=== PATIENT | female | born 1985 | race Caucasian/White ===

== ENCOUNTER 2016-10-15 15:03 | Emergency (ER) | payer MEDICAID ==
[2016-04-21 10:50] VITALS: BMI 34.1
[~2016-10-15 15:03] MED LIST: CYCLOBENZAPRINE10 MG PO; LAMICTAL100 MG PO; LISINOPRIL10 MG PO; NEURONTIN600 MG PO; XANAX1 MG PO
[2016-10-15 16:48] LABS: BASOPHILS 0.5 % (0.0-2.0); EOSINOPHILS 1.9 % (0-7); HEMATOCRIT 39.6 % (36.0-48.0); HEMOGLOBIN 13.2 g/dL (12-16); IMMATURE GRANULOCYTES 0.2 % (0-5); LYMPHOCYTES 35.9 % (15-50); MCH 28.9 pg (26.0-34.0); MCHC 33.3 g/dL (31.0-37.0); MCV 86.8 fL (80.0-100.0); MEAN PLATELET VOLUME 10.6 fL (7.4-10.4); MONOCYTES 5.4 % (2-11); NEUTROPHILS 56.1 % (40-80); RBC 4.56 10x6/uL (4.00-5.40); RDW 12.6 % (11.5-14.5); WBC 8.3 10x3/uL (4.8-10.8)
[2016-10-15 16:50] LABS: PLATELET COUNT 261 10x3/uL (130-400)
[2016-10-15 18:14] LABS: HCG SERUM NEGATIVE (NEGATIVE)
[2016-10-15 18:18] LABS: ANION GAP 15.3 mmol/L (8-16); BILIRUBIN - TOTAL 0.66 mg/dL (0.2-1.3); CALCIUM 9.5 mg/dL (8.5-10.1); CARBON DIOXIDE 26.3 mmol/L (21.0-32.0); POTASSIUM - SERUM 4.6 mmol/L (3.5-5.1); PROTEIN - SERUM 7.9 g/dL (6.4-8.2)
== END 2016-10-15 21:35 | disposition home or self-care (01) ==
LOC: D.ER 15:03
PROVIDERS: Emergency Medicine; Physician Assistant Medical
DX: R10.9 Unspecified abdominal pain (principal); F41.9 Anxiety disorder, unspecified; F31.9 Bipolar disorder, unspecified

== ENCOUNTER 2017-06-29 15:33 | Emergency (ER) | payer MEDICAID ==
[2016-04-21 10:50] VITALS: BMI 34.1
[2017-06-29 17:40] LABS: BASOPHILS 0.2 % (0-2); EOSINOPHILS 0.5 % (0-7); IMMATURE GRANULOCYTES 0.4 % (0-5); LYMPHOCYTES 25.5 % (15-50); MCH 30.4 pg (26.0-34.0); MCHC 34.2 g/dL (31.0-37.0); MCV 88.8 fL (80.0-100.0); MEAN PLATELET VOLUME 10.9 fL (7.4-10.4); MONOCYTES 6.8 % (2-11); NEUTROPHILS 66.6 % (40-80); PLATELET COUNT 214 10x3/uL (130-400); RBC 4.28 10x6/uL (4.00-5.40); RDW 12.9 % (11.5-14.5); WBC 8.1 10x3/uL (4.8-10.8)
[2017-06-29 17:50] LABS: HCG SERUM POSITIVE (NEGATIVE)
[2017-06-29 17:50] LABS: UDS - AMPHET NEGATIVE QUAL (NEGATIVE); UDS - BARB NEGATIVE QUAL (NEGATIVE); UDS - BENZO NEGATIVE QUAL (NEGATIVE); UDS - COCAINE NEGATIVE QUAL (NEGATIVE); UDS - OPIATE NEGATIVE QUAL (NEGATIVE); UDS - PCP NEGATIVE QUAL (NEGATIVE); UDS - THC POSITIVE QUAL (NEGATIVE)
[2017-06-29 17:54] LABS: ALBUMIN 3.3 g/dL (3.4-5.0); ALKALINE PHOSPHATASE 82 U/L (46-116); ALT (SGPT) 16 U/L (10-68); BILIRUBIN - TOTAL 0.27 mg/dL (0.2-1.3); CALC OSMOLALITY 266 mosm/kg (275-300); CALCIUM 8.4 mg/dL (8.5-10.1); CARBON DIOXIDE 23.7 mmol/L (21.0-32.0); CHLORIDE - SERUM 101 mmol/L (98-107); CREATININE - SERUM 0.7 mg/dL (0.6-1.3); GLUCOSE 86 mg/dL (74-106); POTASSIUM - SERUM 3.5 mmol/L (3.5-5.1); PROTEIN - SERUM 7.3 g/dL (6.4-8.2); SODIUM 135 mmol/L (136-145); UREA NITROGEN 6 mg/dL (7-18); eGFR NON AFRICAN AMERICAN > 90 mL/min (90-120)
[2017-06-29 18:51] LABS: APPEARANCE CLEAR (CLEAR); BILIRUBIN NEGATIVE (NEGATIVE); COLOR YELLOW (YELLOW); GLUCOSE NEGATIVE (NEGATIVE); KETONE SMALL mg/dL (NEGATIVE); NITRITE NEGATIVE (NEGATIVE); PROTEIN NEGATIVE (NEGATIVE); SPECIFIC GRAVITY 1.015 (1.005-1.020); UROBILINOGEN NORMAL (NORMAL)
[2017-11-03] MEDS ORDERED: PRENATAL COMPLE1 TAB PO (21:06)
[2017-11-03] MEDS ORDERED: ZOFRAN4 MG SL (21:08)
== END 2017-06-29 20:29 | disposition home or self-care (01) ==
LOC: D.ER 15:33
PROVIDERS: Physician Assistant
DX: O26.891 Other specified pregnancy related conditions, first trimester (principal); Z3A.08 8 weeks gestation of pregnancy; K52.9 Noninfective gastroenteritis and colitis, unspecified; R11.2 Nausea with vomiting, unspecified

== ENCOUNTER 2017-08-26 10:10 | Emergency (ER) | payer MEDICAID ==
[2016-04-21 10:50] VITALS: BMI 34.1
[2017-08-26 10:52] LABS: BASOPHILS 0.1 % (0-2); EOSINOPHILS 1.3 % (0-7); HEMATOCRIT 32.5 % (36.0-48.0); HEMOGLOBIN 11.3 g/dL (12-16); IMMATURE GRANULOCYTES 0.3 % (0-5); MCH 30.2 pg (26.0-34.0); MCHC 34.8 g/dL (31.0-37.0); MCV 86.9 fL (80.0-100.0); MEAN PLATELET VOLUME 10.6 fL (7.4-10.4); MONOCYTES 4.1 % (2-11); NEUTROPHILS 71.2 % (40-80); PLATELET COUNT 201 10x3/uL (130-400); RBC 3.74 10x6/uL (4.00-5.40); RDW 13.2 % (11.5-14.5); WBC 9.1 10x3/uL (4.8-10.8)
[2017-08-26 10:55] LABS: APPEARANCE CLEAR (CLEAR); BILIRUBIN NEGATIVE (NEGATIVE); COLOR YELLOW (YELLOW); GLUCOSE NEGATIVE (NEGATIVE); KETONE NEGATIVE (NEGATIVE); NITRITE NEGATIVE (NEGATIVE); PROTEIN NEGATIVE (NEGATIVE); SPECIFIC GRAVITY 1.015 (1.005-1.020); UROBILINOGEN NORMAL (NORMAL)
[2017-08-26 10:56] LABS: BACTERIA MODERATE /hpf (NONE SEEN); EPITHELIAL CELLS 0-5 /hpf (0-5); RED CELLS - URINE NONE SEEN /hpf (0-5); WHITE CELLS - URINE 0-5 /hpf (0-5)
[2017-08-26 11:00] LABS: HCG SERUM POSITIVE (NEGATIVE)
[2017-08-26 11:07] LABS: ALBUMIN 2.7 g/dL (3.4-5.0); ALKALINE PHOSPHATASE 65 U/L (46-116); ALT (SGPT) 14 U/L (10-68); BILIRUBIN - TOTAL 0.29 mg/dL (0.2-1.3); CALC OSMOLALITY 273 mosm/kg (275-300); CALCIUM 8.7 mg/dL (8.5-10.1); CARBON DIOXIDE 22.1 mmol/L (21.0-32.0); CHLORIDE - SERUM 106 mmol/L (98-107); CREATININE - SERUM 0.7 mg/dL (0.6-1.3); GLUCOSE 97 mg/dL (74-106); LIPASE 108 U/L (73-393); POTASSIUM - SERUM 3.5 mmol/L (3.5-5.1); PROTEIN - SERUM 6.5 g/dL (6.4-8.2); SODIUM 138 mmol/L (136-145); UREA NITROGEN 6 mg/dL (7-18); eGFR NON AFRICAN AMERICAN > 90 mL/min (90-120)
--- NOTE | 2017-08-26 14:00 | NUR ---
RECIEVED PT FROM ER VIA WC. PT UP TO RESTROOM TO VOID. PT AND FOB SPEAKING TO EACH OTHER IN ELEVATED VOICES. EXPLAINED THAT DR TINAJERO WAS ON UNIT AND WILL BE IN SHORTLY TO ASSESS HER.
--- NOTE | 2017-08-26 14:10 | NUR ---
DR TINAJERO IN ROOM ASSESSING PT. ABDOMEN PALPATES SOFT PER MD. FHT 140S VIA DOPPLAR. MD DISCUSSING ROUND LIGAMENT PAIN WITH PT AT THIS TIME. PT DENIES FURTHER QUESTIONS OR NEEDS AND AMBULATES OFF UNIT.
[2017-11-03] MEDS ORDERED: PRENATAL COMPLE1 TAB PO (21:06)
[2017-11-03] MEDS ORDERED: ZOFRAN4 MG SL (21:08)
== END 2017-08-26 14:00 | disposition home or self-care (01) ==
LOC: D.ER 10:10
PROVIDERS: Emergency Medicine
DX: R10.9 Unspecified abdominal pain (principal)

== ENCOUNTER → 2017-10-12 14:31 | Outpatient (CLI) | payer MEDICAID ==
[2016-04-21 10:50] VITALS: BMI 34.1
[~2017-10-12 14:31] MED LIST changes: +PRENATAL COMPLE1 TAB PO; +ZOFRAN4 MG SL
[2017-10-12 15:06] LABS: UDS - AMPHET NEGATIVE QUAL (NEGATIVE); UDS - BARB NEGATIVE QUAL (NEGATIVE); UDS - BENZO NEGATIVE QUAL (NEGATIVE); UDS - COCAINE NEGATIVE QUAL (NEGATIVE); UDS - OPIATE NEGATIVE QUAL (NEGATIVE); UDS - PCP NEGATIVE QUAL (NEGATIVE); UDS - THC NEGATIVE QUAL (NEGATIVE)
[2017-10-12 15:13] LABS: APPEARANCE CLEAR (CLEAR); BILIRUBIN NEGATIVE (NEGATIVE); COLOR YELLOW (YELLOW); GLUCOSE NEGATIVE (NEGATIVE); KETONE NEGATIVE (NEGATIVE); NITRITE NEGATIVE (NEGATIVE); PROTEIN NEGATIVE (NEGATIVE); UROBILINOGEN NORMAL (NORMAL)
== END | disposition home or self-care (01) ==
LOC: D.LDO 14:31
PROVIDERS: Obstetrics & Gynecology
DX: Z34.82 Encounter for supervision of other normal pregnancy, second trimester (principal); Z3A.24 24 weeks gestation of pregnancy; R10.9 Unspecified abdominal pain

== ENCOUNTER → 2017-11-03 20:55 | Outpatient (CLI) | payer MEDICAID ==
[2016-04-21 10:50] VITALS: BMI 34.1
[2017-11-03 21:49] LABS: APPEARANCE SLT CLOUDY (CLEAR); BILIRUBIN NEGATIVE (NEGATIVE); COLOR YELLOW (YELLOW); GLUCOSE NEGATIVE (NEGATIVE); KETONE NEGATIVE (NEGATIVE); NITRITE NEGATIVE (NEGATIVE); PROTEIN TRACE mg/dL (NEGATIVE); UROBILINOGEN NORMAL (NORMAL)
== END | disposition home or self-care (01) ==
LOC: D.LDO 20:55
PROVIDERS: Obstetrics & Gynecology
DX: O26.892 Other specified pregnancy related conditions, second trimester (principal); Z3A.27 27 weeks gestation of pregnancy; R10.9 Unspecified abdominal pain

== ENCOUNTER → 2017-12-20 16:58 | Outpatient (CLI) | payer MEDICAID ==
[2016-04-21 10:50] VITALS: BMI 34.1
[~2017-12-20 16:58] MED LIST changes: +FERROUS SULFAT325 MG PO; +HYDROCODON-ACE1 EAC7 PO; +LAMICTAL200 MG PO
[2017-12-20 17:55] LABS: HEMATOCRIT 28.5 % (36.0-48.0); HEMOGLOBIN 9.6 g/dL (12-16); MCH 29.3 pg (26.0-34.0); MCHC 33.7 g/dL (31.0-37.0); MCV 86.9 fL (80.0-100.0); MEAN PLATELET VOLUME 9.7 fL (7.4-10.4); PLATELET COUNT 218 10x3/uL (130-400); RBC 3.28 10x6/uL (4.00-5.40); RDW 13.2 % (11.5-14.5); WBC 10.2 10x3/uL (4.8-10.8)
[2017-12-20 17:57] LABS: APPEARANCE HAZY (CLEAR); BILIRUBIN NEGATIVE (NEGATIVE); COLOR DK YELLOW (YELLOW); GLUCOSE NEGATIVE (NEGATIVE); KETONE NEGATIVE (NEGATIVE); NITRITE NEGATIVE (NEGATIVE); PROTEIN NEGATIVE (NEGATIVE); UROBILINOGEN NORMAL (NORMAL)
[2017-12-20 18:29] LABS: EOSINOPHILS 3 % (0-7); LYMPHOCYTES 26 % (15-50); NEUTROPHILS 70 % (40-80); PLATELET ESTIMATE NORMAL
[2017-12-20 18:30] LABS: ROULEAUX OCC
== END | disposition home or self-care (01) ==
LOC: D.LDO 16:58
PROVIDERS: Obstetrics & Gynecology
DX: O21.2 Late vomiting of pregnancy (principal); Z3A.34 34 weeks gestation of pregnancy

== ENCOUNTER → 2017-12-28 12:41 | Outpatient (CLI) | payer MEDICAID ==
[2016-04-21 10:50] VITALS: BMI 34.1
== END | disposition home or self-care (01) ==
LOC: D.LDO 12:41
DX: O26.893 Other specified pregnancy related conditions, third trimester (principal); Z3A.35 35 weeks gestation of pregnancy; R10.30 Lower abdominal pain, unspecified

== ENCOUNTER 2018-01-31 08:52 | Inpatient (IN) | payer MEDICAID ==
[~2018-01-31] VITALS: Ht 157.5 cm; Wt 85.3 kg
[~2018-01-31 08:52] MED LIST changes: -FERROUS SULFAT325 MG PO; -HYDROCODON-ACE1 EAC7 PO; -LAMICTAL200 MG PO
[2018-01-31] MEDS ORDERED: FERROUS SULFAT325 MG PO (09:45)
[2018-01-31 09:49] VITALS: BP 131/85; Ht 157.5 cm; Wt 85.3 kg
== END 2018-01-31 11:30 | disposition home or self-care (01) | DRG 781 ==
LOC: D.SDCHOLD 08:52 → D.LD 09:00 → D.SDCHOLD 11:00 → D.LD 11:30
DX: O34.219 Maternal care for unspecified type scar from previous cesarean delivery (principal); O99.343 Other mental disorders complicating pregnancy, third trimester; Z3A.39 39 weeks gestation of pregnancy; F31.9 Bipolar disorder, unspecified

== ENCOUNTER 2018-02-01 06:01 | Inpatient (IN) | payer MEDICAID ==
[2018-01-30 09:17] LABS: HEMATOCRIT 30.6 % (36.0-48.0); HEMOGLOBIN 10.2 g/dL (12-16); MCH 28.8 pg (26.0-34.0); MCHC 33.3 g/dL (31.0-37.0); MCV 86.4 fL (80.0-100.0); MEAN PLATELET VOLUME 9.8 fL (7.4-10.4); RBC 3.54 10x6/uL (4.00-5.40); RDW 13.6 % (11.5-14.5); WBC 10.2 10x3/uL (4.8-10.8)
[2018-01-31 08:26] LABS: RAPID PLASMA REAGIN Non Reactive (Non Reactive)
[2018-02-01] VITALS (12 sets, daily range): BP systolic 115–134; BP diastolic 3–87; Ht 157.5 cm; Wt 85.3 kg
[~2018-02-01] VITALS: Ht 157.5 cm; Wt 85.3 kg
--- NOTE | ~2018-02-01 | OP ---
PATIENT NAME: JOANN WOODS MEDICAL RECORD: [id number] :87 LOCATION:[id number] ADMISSION DATE:02/01/18 SURGEON: GIOVANI TINAJERO MD DATE OF OPERATION: 02/01/2018 PREOPERATIVE DIAGNOSES: 1. History of prior section. 2. at 39 weeks gestational age. 3. Unwanted fertility. POSTDELIVERY DIAGNOSES: 1. History of prior section. 2. Mother delivered at 39 weeks. 3. Unwanted fertility. PROCEDURES: 1. Repeat low transverse section. 2. tubal ligation using a [place] technique. SURGEON: Giovani Tinajero MD ANESTHESIOLOGIST: Dr. Velasquez ANESTHETIC: Spinal. FINDINGS: Uterus, tubes, and ovaries are unremarkable. Viable female , vertex presentation, Apgars 9 and 9, weight 7 pounds 9 ounces. SPECIMEN REMOVED: Placenta. SPECIMEN DISPOSITION: Discarded. ESTIMATED BLOOD LOSS: 700 cc. URINE OUTPUT: 200 cc. FLUIDS: 2100 cc Lactated Ringer's. COMPLICATIONS: None. DRAINS: Donaldson to gravity. INDICATIONS: The patient is a 32-year-old multiparous female with unwanted fertility at 39 weeks' gestation. The patient is consented for repeat low transverse section and tubal ligation. Risks, benefits as well as alternatives to tubal ligation have been described. The patient understands the risk of failure of 1 in 100 with an increased chance of an ectopic gestation, which can be life threatening if not treated properly. DESCRIPTION OF PROCEDURE: After informed consent was assured, the patient was taken to the operating room where anesthetic was attained without difficulty. The patient was prepped and draped and the anesthetic assessed and found to be adequate. An incision was made over the old scar, carried down to the underlying layer of the fascia, which was opened and the rectus bellies dissected free. The peritoneum is now entered sharply and the peritoneal OPERATIVE REPORT [id number] JOANN WOODS opening extended with good visualization of the bladder. A [place]Lee all-purpose retractor was now inserted and low transverse hysterotomy was performed. The infant was delivered onto the abdomen atraumatically. Cord was doubly clamped and cut, and the infant was passed to the attendant. Placenta was delivered via Crede maneuver. Uterus exteriorized, cleared of all clot and debris. The uterus was now closed with a running locked stitch of chromic. After this was performed, some bleeding was encountered at the right corner and an [place] stitch was placed to obtain hemostasis. Attention was directed to the right tube, which was elevated and a window developed in the antimesenteric side. Two ligatures were passed through here and secured in the proximal and distal segment and the intervening segment of tube excised. The ostia was cauterized. This was repeated on the contralateral side. Both segments of tubes are sent to pathology. The uterus was now returned to the abdomen and inspection of the tubal stumps reveals adequate hemostasis. The hysterotomy was inspected and pelvis irrigated, and the hysterotomy was found to be hemostatic. Irrigant was removed, and the rectus bellies were reapproximated with 2 interrupted stitches of chromic in the midline. The fascia was now closed with looped PDS. The skin was reapproximated with a subcuticular stitch. Sterile dressing was applied. Sponge, lap, and needle count was correct times 3. TRANSINT:[id number] Voice Confirmation ID: [id number] DOCUMENT ID: [id number] GIOVANI TINAJERO MD at 0654 CC: [id number] DICTATION DATE: 02/01/18 1156 APPLE PEELER OPERATOR: 02/01/18 1528 DIS IN 02/03/18 [facility] [address] [place] [address]
[~2018-02-01 06:01] MED LIST changes: +FERROUS SULFAT325 MG PO
[2018-02-02 03:02] VITALS: BP 110/74
[2018-02-02 07:11] VITALS: BP 117/64
[2018-02-02 15:27] LABS: BASOPHILS 0.1 % (0-2); HEMATOCRIT 28.3 % (36.0-48.0); HEMOGLOBIN 9.2 g/dL (12-16); IMMATURE GRANULOCYTES 0.6 % (0-5); LYMPHOCYTES 21.2 % (15-50); MCH 28.5 pg (26.0-34.0); MCHC 32.5 g/dL (31.0-37.0); MCV 87.6 fL (80.0-100.0); MEAN PLATELET VOLUME 9.6 fL (7.4-10.4); MONOCYTES 6.5 % (2-11); NEUTROPHILS 68.6 % (40-80); PLATELET COUNT 229 10x3/uL (130-400); RBC 3.23 10x6/uL (4.00-5.40); RDW 13.7 % (11.5-14.5)
[2018-02-02 15:59] VITALS: BP 125/78
[2018-02-02 19:41] VITALS: BP 126/75
[2018-02-03 00:26] VITALS: BP 120/81
[2018-02-03 07:39] VITALS: BP 124/84
[2018-02-03] MEDS ORDERED: LAMICTAL200 MG PO (11:41)
[2018-02-03] MEDS ORDERED: HYDROCODON-ACE1 EAC7 PO (11:42)
== END 2018-02-03 12:55 | disposition home or self-care (01) | DRG 766 ==
LOC: D.LD 06:01
PROVIDERS: Obstetrics & Gynecology
PROC: 10D00Z1 Extraction of Products of Conception, Low, Open Approach (ICD-10-PCS; principal; 2018-02-01 07:30)
PROC: 0UB70ZZ Excision of Bilateral Fallopian Tubes, Open Approach (ICD-10-PCS; 2018-02-01 07:30)
DX: O34.219 Maternal care for unspecified type scar from previous cesarean delivery (principal); Z3A.39 39 weeks gestation of pregnancy; Z37.0 Single live birth; Z30.2 Encounter for sterilization; Z30.09 Encounter for other general counseling and advice on contraception; O99.344 Other mental disorders complicating childbirth; Z87.891 Personal history of nicotine dependence

== ENCOUNTER 2018-04-14 15:29 | Emergency (ER) | payer MEDICAID ==
[~2018-04-14] VITALS: Ht 157.5 cm; Wt 81.8 kg
[~2018-04-14 15:29] MED LIST changes: +HYDROCODON-ACE1 EAC7 PO; +LAMICTAL200 MG PO
[2018-04-14 15:33] VITALS: Ht 157.5 cm; Wt 81.8 kg
[2018-04-14] MEDS ORDERED: XANAX1 MG PO (15:36)
[2018-04-14] MEDS ORDERED: LAMICTAL150 MG PO (15:36)
[2018-04-14] MEDS ORDERED: IBUPROFEN400 MG PO (15:37)
[2018-04-14 16:00] LABS: APPEARANCE CLEAR (CLEAR); BILIRUBIN NEGATIVE (NEGATIVE); COLOR DK YELLOW (YELLOW); GLUCOSE NEGATIVE (NEGATIVE); KETONE NEGATIVE (NEGATIVE); NITRITE NEGATIVE (NEGATIVE); PROTEIN NEGATIVE (NEGATIVE); SPECIFIC GRAVITY 1.025 (1.005-1.020); UROBILINOGEN NORMAL (NORMAL)
[2018-04-14 16:01] LABS: RED CELLS - URINE 0-5 /hpf (0-5); WHITE CELLS - URINE 0-5 /hpf (0-5)
[2018-04-14 16:02] LABS: BACTERIA FEW /hpf (NONE SEEN); EPITHELIAL CELLS 0-5 /hpf (0-5)
[2018-04-14 16:16] LABS: BASOPHILS 0.2 % (0-2); EOSINOPHILS 3.4 % (0-7); HEMATOCRIT 37.8 % (36.0-48.0); HEMOGLOBIN 12.3 g/dL (12-16); IMMATURE GRANULOCYTES 0.1 % (0-5); LYMPHOCYTES 36.9 % (15-50); MCH 26.9 pg (26.0-34.0); MCHC 32.5 g/dL (31.0-37.0); MCV 82.7 fL (80.0-100.0); MEAN PLATELET VOLUME 10.1 fL (7.4-10.4); MONOCYTES 5.6 % (2-11); NEUTROPHILS 53.8 % (40-80); PLATELET COUNT 263 10x3/uL (130-400); RBC 4.57 10x6/uL (4.00-5.40); RDW 13.7 % (11.5-14.5)
[2018-04-14 16:52] LABS: ALBUMIN 3.5 g/dL (3.4-5.0); ALKALINE PHOSPHATASE 95 U/L (46-116); ALT (SGPT) 32 U/L (10-68); AMYLASE - SERUM 25 U/L (25-115); BILIRUBIN - TOTAL 0.79 mg/dL (0.2-1.3); CALC OSMOLALITY 278 mosm/kg (275-300); CALCIUM 8.7 mg/dL (8.5-10.1); CARBON DIOXIDE 27.5 mmol/L (21.0-32.0); CHLORIDE - SERUM 107 mmol/L (98-107); CREATININE - SERUM 0.9 mg/dL (0.6-1.3); GLUCOSE 87 mg/dL (74-106); LIPASE 103 U/L (73-393); POTASSIUM - SERUM 3.8 mmol/L (3.5-5.1); PROTEIN - SERUM 7.2 g/dL (6.4-8.2); SODIUM 141 mmol/L (136-145); UREA NITROGEN 9 mg/dL (7-18); eGFR NON AFRICAN AMERICAN 78 mL/min (90-120)
[2018-04-14] MEDS ORDERED: BENTYL 20 MG TA20 MG PO (18:47)
[2018-04-14] MEDS ORDERED: COMPAZINE10 MG PO (18:47)
[2018-04-14 19:01] VITALS: BP 144/82
== END 2018-04-14 19:03 | disposition home or self-care (01) ==
LOC: D.ER 15:29
PROVIDERS: Family Medicine
DX: A08.4 Viral intestinal infection, unspecified (principal); R51 Headache; I10 Essential (primary) hypertension; F17.200 Nicotine dependence, unspecified, uncomplicated

== ENCOUNTER 2018-04-24 19:16 | Emergency (ER) | payer MEDICAID ==
[~2018-04-24] VITALS: Ht 157.5 cm; Wt 80.9 kg
[~2018-04-24 19:16] MED LIST changes: +BENTYL 20 MG TA20 MG PO; +COMPAZINE10 MG PO; +IBUPROFEN400 MG PO; +LAMICTAL150 MG PO
[2018-04-24 19:23] VITALS: Ht 157.5 cm; Wt 80.9 kg
[2018-04-24] MEDS ORDERED: HYDROCODONE-APA1 TAB PO (22:23)
[2018-04-24 22:51] VITALS: BP 129/78
== END 2018-04-24 22:45 | disposition home or self-care (01) ==
LOC: D.ER 19:16
DX: T22.011A Burn of unspecified degree of right forearm, initial encounter (principal); T31.0 Burns involving less than 10% of body surface; X12.XXXA Contact with other hot fluids, initial encounter; Y93.89 Activity, other specified; Y92.89 Other specified places as the place of occurrence of the external cause; H91.92 Unspecified hearing loss, left ear; H54.62 Unqualified visual loss, left eye, normal vision right eye; I10 Essential (primary) hypertension

== ENCOUNTER 2018-07-16 17:19 | Emergency (ER) | payer MEDICAID ==
[~2018-07-16] VITALS: Ht 157.5 cm; Wt 75.9 kg
[~2018-07-16 17:19] MED LIST changes: +HYDROCODONE-APA1 TAB PO
[2018-07-16 17:35] VITALS: Ht 157.5 cm; Wt 75.9 kg
[2018-07-16 18:25] LABS: BASOPHILS 0.3 % (0-2); EOSINOPHILS 0.7 % (0-7); HEMATOCRIT 38.7 % (36.0-48.0); HEMOGLOBIN 12.8 g/dL (12-16); IMMATURE GRANULOCYTES 0.2 % (0-5); LYMPHOCYTES 26.5 % (15-50); MCH 27.6 pg (26.0-34.0); MCHC 33.1 g/dL (31.0-37.0); MCV 83.6 fL (80.0-100.0); MEAN PLATELET VOLUME 10.7 fL (7.4-10.4); MONOCYTES 3.6 % (2-11); NEUTROPHILS 68.7 % (40-80); PLATELET COUNT 274 10x3/uL (130-400); RBC 4.63 10x6/uL (4.00-5.40); RDW 15.1 % (11.5-14.5); WBC 10.6 10x3/uL (4.8-10.8)
[2018-07-16 18:42] LABS: ALBUMIN 3.7 g/dL (3.4-5.0); ANION GAP 16.2 mmol/L (8-16); BILIRUBIN - TOTAL 0.65 mg/dL (0.2-1.3); CALCIUM 8.5 mg/dL (8.5-10.1); CARBON DIOXIDE 23.3 mmol/L (21.0-32.0); POTASSIUM - SERUM 3.5 mmol/L (3.5-5.1); PROTEIN - SERUM 7.4 g/dL (6.4-8.2)
[2018-07-16] MEDS ORDERED: MEDROL DOSE PACK4 MG PO (20:38)
[2018-07-16 20:55] VITALS: BP 122/86
== END 2018-07-16 20:35 | disposition home or self-care (01) ==
LOC: D.ER 17:19
PROVIDERS: Emergency Medicine
DX: R07.9 Chest pain, unspecified (principal); T78.49XA Other allergy, initial encounter; X58.XXXA Exposure to other specified factors, initial encounter; I10 Essential (primary) hypertension; K21.9 Gastro-esophageal reflux disease without esophagitis; F17.200 Nicotine dependence, unspecified, uncomplicated

== ENCOUNTER 2018-09-30 18:41 | Emergency (ER) | payer MEDICAID ==
[~2018-09-30] VITALS: Ht 157.5 cm; Wt 68.0 kg
[~2018-09-30 18:41] MED LIST changes: +MEDROL DOSE PACK4 MG PO
[2018-09-30 18:45] VITALS: Ht 157.5 cm; Wt 68.0 kg
[2018-09-30 19:01] LABS: BASOPHILS 0.2 % (0-2); EOSINOPHILS 1.3 % (0-7); HEMATOCRIT 41.6 % (36.0-48.0); HEMOGLOBIN 14.1 g/dL (12-16); IMMATURE GRANULOCYTES 0.1 % (0-5); LYMPHOCYTES 16.4 % (15-50); MCH 28.7 pg (26.0-34.0); MCHC 33.9 g/dL (31.0-37.0); MCV 84.7 fL (80.0-100.0); MEAN PLATELET VOLUME 10.9 fL (7.4-10.4); MONOCYTES 3.5 % (2-11); NEUTROPHILS 78.5 % (40-80); PLATELET COUNT 226 10x3/uL (130-400); RBC 4.91 10x6/uL (4.00-5.40); WBC 9.5 10x3/uL (4.8-10.8)
[2018-09-30 19:24] LABS: ALBUMIN 3.8 g/dL (3.4-5.0); ALKALINE PHOSPHATASE 82 U/L (46-116); ALT (SGPT) 20 U/L (10-68); BILIRUBIN - TOTAL 0.86 mg/dL (0.2-1.3); CALC OSMOLALITY 279 mosm/kg (275-300); CALCIUM 8.7 mg/dL (8.5-10.1); CHLORIDE - SERUM 104 mmol/L (98-107); CREATININE - SERUM 0.8 mg/dL (0.6-1.3); PROTEIN - SERUM 7.5 g/dL (6.4-8.2); SODIUM 141 mmol/L (136-145); UREA NITROGEN 9 mg/dL (7-18); eGFR NON AFRICAN AMERICAN 89 mL/min (90-120)
[2018-09-30 19:33] LABS: GLUCOSE 90 mg/dL (74-106)
[2018-09-30 20:14] LABS: HCG SERUM NEGATIVE (NEGATIVE)
[2018-09-30] MEDS ORDERED: ZOFRAN ODT4 MG/UDTAB PO (22:21)
[2018-09-30 23:55] LABS: APPEARANCE HAZY (CLEAR); BILIRUBIN NEGATIVE (NEGATIVE); COLOR YELLOW (YELLOW); GLUCOSE NEGATIVE (NEGATIVE); KETONE NEGATIVE (NEGATIVE); NITRITE NEGATIVE (NEGATIVE); PROTEIN NEGATIVE (NEGATIVE); UROBILINOGEN NORMAL (NORMAL)
[2018-09-30 23:56] LABS: BACTERIA MODERATE /hpf (NONE SEEN); EPITHELIAL CELLS 0-5 /hpf (0-5); RED CELLS - URINE 0-5 /hpf (0-5); WHITE CELLS - URINE 0-5 /hpf (0-5)
[2018-09-30 23:57] VITALS: BP 129/85
== END 2018-09-30 23:57 | disposition home or self-care (01) ==
LOC: D.ER 18:41
PROVIDERS: Family Medicine
DX: A08.4 Viral intestinal infection, unspecified (principal)

== ENCOUNTER 2018-12-27 18:31 | Emergency (ER) | payer OTHER ==
[~2018-12-27] VITALS: Ht 157.5 cm; Wt 68.2 kg
[~2018-12-27 18:31] MED LIST changes: +ZOFRAN ODT4 MG/UDTAB PO
[2018-12-27 19:29] VITALS: Ht 157.5 cm; Wt 68.2 kg
[2018-12-27 21:00] LABS: BASOPHILS 0.4 % (0-2); EOSINOPHILS 1.8 % (0-7); HEMATOCRIT 37.5 % (36.0-48.0); HEMOGLOBIN 12.5 g/dL (12-16); IMMATURE GRANULOCYTES 0.1 % (0-5); LYMPHOCYTES 37.5 % (15-50); MCH 28.6 pg (26.0-34.0); MCHC 33.3 g/dL (31.0-37.0); MCV 85.8 fL (80.0-100.0); MEAN PLATELET VOLUME 10.9 fL (7.4-10.4); MONOCYTES 6.7 % (2-11); NEUTROPHILS 53.5 % (40-80); PLATELET COUNT 220 10x3/uL (130-400); RBC 4.37 10x6/uL (4.00-5.40); RDW 13.6 % (11.5-14.5); WBC 8.3 10x3/uL (4.8-10.8)
[2018-12-27 21:14] LABS: ALBUMIN 3.6 g/dL (3.4-5.0); ALKALINE PHOSPHATASE 74 U/L (46-116); ALT (SGPT) 12 U/L (10-68); BILIRUBIN - TOTAL 0.48 mg/dL (0.2-1.3); CALC OSMOLALITY 273 mosm/kg (275-300); CALCIUM 8.4 mg/dL (8.5-10.1); CARBON DIOXIDE 27.6 mmol/L (21.0-32.0); CHLORIDE - SERUM 104 mmol/L (98-107); CREATININE - SERUM 0.8 mg/dL (0.6-1.3); GLUCOSE 97 mg/dL (74-106); POTASSIUM - SERUM 3.6 mmol/L (3.5-5.1); PROTEIN - SERUM 7.3 g/dL (6.4-8.2); SODIUM 138 mmol/L (136-145); UREA NITROGEN 8 mg/dL (7-18); eGFR NON AFRICAN AMERICAN 89 mL/min (90-120)
[2018-12-27] MEDS ORDERED: IBUPROFEN800 MG PO (21:54)
[2018-12-27] MEDS ORDERED: KEFLEX500 MG PO (21:54)
[2018-12-27] MEDS ORDERED: CLEOCIN HCL300 MG PO (21:54)
[2018-12-27] MEDS ORDERED: ACETAMINOPHEN500 M1 PO (21:54)
[2018-12-27] MEDS ORDERED: CYCLOBENZAPRINE10 MG PO (21:54)
[2018-12-27 22:13] VITALS: BP 137/82
== END 2018-12-27 22:13 | disposition home or self-care (01) ==
LOC: D.ER 18:31
PROVIDERS: Family Medicine
DX: L03.116 Cellulitis of left lower limb (principal); S91.302A Unspecified open wound, left foot, initial encounter; L08.9 Local infection of the skin and subcutaneous tissue, unspecified

== ENCOUNTER 2019-08-22 12:17 | Emergency (ER) | payer OTHER ==
[~2019-08-22] VITALS: Ht 157.5 cm; Wt 54.5 kg
[~2019-08-22 12:17] MED LIST changes: +ACETAMINOPHEN500 M1 PO; +CLEOCIN HCL300 MG PO; +IBUPROFEN800 MG PO; +KEFLEX500 MG PO
[2019-08-22 12:21] VITALS: Ht 157.5 cm; Wt 54.5 kg
[2019-08-22 13:04] LABS: CALC OSMOLALITY 276 mosm/kg (275-300); CALCIUM 9.6 mg/dL (8.5-10.1); CARBON DIOXIDE 28.7 mmol/L (21.0-32.0); CHLORIDE - SERUM 104 mmol/L (98-107); CREATININE - SERUM 0.9 mg/dL (0.6-1.3); GLUCOSE 103 mg/dL (74-106); POTASSIUM - SERUM 3.9 mmol/L (3.5-5.1); SODIUM 140 mmol/L (136-145); UREA NITROGEN 7 mg/dL (7-18); eGFR NON AFRICAN AMERICAN 77 mL/min (90-120)
[2019-08-22 13:05] LABS: BASOPHILS 0.3 % (0-2); EOSINOPHILS 1.6 % (0-7); HEMATOCRIT 42.4 % (36.0-48.0); HEMOGLOBIN 14.3 g/dL (12-16); IMMATURE GRANULOCYTES 0.3 % (0-5); LYMPHOCYTES 33.8 % (15-50); MCH 30.6 pg (26.0-34.0); MCHC 33.7 g/dL (31.0-37.0); MCV 90.6 fL (80.0-100.0); MEAN PLATELET VOLUME 11.4 fL (7.4-10.4); MONOCYTES 6.1 % (2-11); NEUTROPHILS 57.9 % (40-80); PLATELET COUNT 248 10x3/uL (130-400); RBC 4.68 10x6/uL (4.00-5.40); WBC 7.4 10x3/uL (4.8-10.8)
[2019-08-22 13:11] LABS: ALBUMIN 4.2 g/dL (3.4-5.0); ALKALINE PHOSPHATASE 77 U/L (46-116); ALT (SGPT) 21 U/L (10-68); BILIRUBIN - TOTAL 0.72 mg/dL (0.2-1.3); PROTEIN - SERUM 8.1 g/dL (6.4-8.2)
[2019-08-22 13:38] LABS: APTT 30.4 SECONDS (22.8-39.4); INR 1.01 (0.85-1.17); PROTIME 12.8 SECONDS (11.6-15.0)
[2019-08-22] MEDS ORDERED: RANITIDINE HCL150 M1 PO (16:15)
[2019-08-22] MEDS ORDERED: ZOFRAN ODT4 MG/UDTAB PO (16:15)
[2019-08-22 17:30] VITALS: BP 118/77
== END 2019-08-22 17:30 | disposition home or self-care (01) ==
LOC: D.ER 12:17
PROVIDERS: Family Medicine
DX: K29.70 Gastritis, unspecified, without bleeding (principal); R11.2 Nausea with vomiting, unspecified; I10 Essential (primary) hypertension; M54.9 Dorsalgia, unspecified; K21.9 Gastro-esophageal reflux disease without esophagitis

== ENCOUNTER 2020-07-02 05:33 | Emergency (ER) | payer OTHER ==
[~2020-07-02] VITALS: Ht 157.5 cm; Wt 61.8 kg
[~2020-07-02 05:33] MED LIST changes: +RANITIDINE HCL150 M1 PO
[2020-07-02 05:37] VITALS: BP 151/92; Ht 157.5 cm; Wt 61.8 kg
== END 2020-07-02 06:16 | disposition left against medical advice (07) ==
LOC: D.ER 05:33
DX: S16.1XXA Strain of muscle, fascia and tendon at neck level, initial encounter (principal); I10 Essential (primary) hypertension; K21.9 Gastro-esophageal reflux disease without esophagitis; Z72.0 Tobacco use; Z53.29 Procedure and treatment not carried out because of patient's decision for other reasons; M54.2 Cervicalgia